=== PATIENT | male | born 1935 | race Caucasian/White ===

== ENCOUNTER → 2018-03-22 | Outpatient (CLI) | payer MEDICARE, BC | END | disposition home or self-care (01) | LOC: LABWHC1 08:46 | PROVIDERS: ATTEND Internal Medicine Cardiovascular Disease | DX: I25.10 Atherosclerotic heart disease of native coronary artery without angina pectoris (principal) | CPT/HCPCS: 36415; 83704 ==

== ENCOUNTER → 2020-12-03 | Outpatient (CLI) | payer MEDICARE, OTHER | END | disposition home or self-care (01) | CPT/HCPCS: 36415; 80053; 80061; 83036; 84443 ==

== ENCOUNTER 2023-06-07 11:32 | Day surgery (SDC) | payer MEDICARE ==
[~2023-06-07 11:32] MED LIST: LIDOCAINE 1% (10MG/ML) FOR IV START INTRADERMA PRN; SODIUM CHLORIDE 0.9% 1,000 ML IV SCH; ceFAZolin 1 GM in SODIUM CHLORIDE 0.9% IRRIG BTL 250 ML IRRIGATION PRN
[2023-06-07] MEDS ORDERED: SODIUM CHLORIDE 0.9% 1,000 ML IV ONE (12:07)
[2023-06-07 12:29] LABS: Glucose,Whole Blood 151 mg/dL (70-110)
[2023-06-07] MEDS ORDERED: fentaNYL (PF) 50 MCG/ML 2 ML AMP ONE (14:35)
[2023-06-07] MEDS ORDERED: IOPAMIDOL-370 100ML BTL INJ ONE (14:56)
[2023-06-07] MEDS ORDERED: LIDOCAINE 1% INJ 10MG/ML (30 ML VIAL-PF) SQ ONE (15:30)
[2023-06-07] MEDS ORDERED: ACETAMINOPHEN TAB 325 MG TAB PO PRN (16:41)
[2023-06-07] MEDS ORDERED: ACETAMINOPHEN IV (For NPO) 1,000 MG in EMPTY BAG 1 BAG IVPB ONE (17:00)
[2023-06-07] MEDS: LACTATED RINGERS 1,000 ML IV SCH (17:36)
--- NOTE | 2023-06-07 17:37 | P.EPPROC ---
- EP Procedure Note Electrophysiology Procedure Note: Diagnosis Complete heart block, congestive heart failure, left radical ejection fraction mildly reduced 100% RV pacing Procedure Upgrade to a biventricular pacemaker with conduction system pacing (left bundle pacing) Left upper extremity venogram Details Patient was brought to the EP lab in a fasting state. Written informed consent was obtained prior to the procedure. Conscious sedation provided by TRANSMISSION SPECIALIST. IV antibiotics administered. Local anesthesia administered. A 4 cm incision ma de in the pectoral area. Subfascial pocket made. Venous accesses obtained Venous sheaths placed. Leads placed in the right heart. A deflected sheath was prepped. A coronary sinus decapolar catheter was placed within this sheath. The catheter along with the sheath was then passed into the right heart, the catheter was prolapsed across the tricuspid valve, into the right ventricle and then further into the right ventricular outflow tract across the pulmonic valve into the pulmonary artery. This sheath was slid over this decapolar catheter into the RVOT. Thereafter the catheter last sheath assembly was withdrawn from the RVOT along the septum to the mid septal area. The sheath was appropriately to to map the right ventricular aspect of the septum. The decapolar catheter was withdrawn, the sheath flushed again and the screw-in pacing lead placed within the sheath. Further detailed unipolar pace-mapping of the septum was performed and once the appropriate based morphology was obtained on lead V1, the lead was screwed into the septum. The lead was screwed in 4-5 returns at a time while monitoring the current of injury, the pacing impedance changes and the paced QRS morphology. The stimulus to peak of V6 QRS was measured at each step. Once a QR or rSR pattern of paced QRS in lead V1 was obtained, a left bundle signal was sought. Impedance was measured and thresholds were measured. An impedance drop of 100-200 ohms but above 550 ohms was targeted along with an unchanged vector of the current of injury signal. The final positioning was based on the QRS morphology in lead V1 and a short stimulus to peak of the V6 QRS of less than 90 ms. The sheath was withdrawn, stability of the pacing lead deep in the septum was confirmed on BECKHAM and SERENITY views and the sheath was slipped and an adequate heel was provided for the lead. Unipolar and bipolar electrogram morphology obtained Chronic atrial lead [employer] model #5076, 45 cm length implanted in 09/19/2013 Pacing impedance 418 ohms, P waves 4.9 mV and pacing threshold 0.5 V at 0.4 ms Chronic RV lead, [employer]onic model #5076, 52 cm length, also implanted originally for complete heart block on August Pacing impedance 532 ohms, no R waves Pacing threshold 0.75 V at 0.4 ms Left bundle lead parameters Medtronic model #3830, 69 cm length Pacing threshold 0.5 V at 0.4 ms unipolar Pacing impedance 779 ohms Stimulus to QRS peak on V6: 30 ms QRS width 144 ms Typical right bundle branch block pattern on bipolar and on unipolar pacing QR pattern QRS width and stimulus to V6 speak slightly greater in the bipolar configuration Oral device was a Metronic Adapta DR New device [employer] Medtronic RNO [id number] Biventricular pacemaker device connected to the leads and placed in the subfascial pocket Patient tolerated the procedure well without acute complications Pacemaker programming: DDDR 60-130 Paced AV delay 210 ms LV-RV offset 80 ms Left bundle pacing in the unipolar configuration Patient tolerated the procedure well without any acute complications. Antibiotic pouch placed in pocket Wound closed in 3 layers and dressed per protocol
[2023-06-07] MEDS: GLIMEPIRIDE 1 MG TAB PO SCH (20:36)
[2023-06-07] MEDS ORDERED: PRAVASTATIN SODIUM 80 MG TAB PO SCH (21:00)
[2023-06-07] MEDS ORDERED: METOPROLOL SUCCINATE (ER) 25 MG TAB.ER.24H PO SCH (21:00)
[2023-06-08 03:25] VITALS: RESP 15
[2023-06-08] MEDS: LACTATED RINGERS 1,000 ML IV SCH (03:49)
[2023-06-08] MEDS ORDERED: LEVOTHYROXINE 88 MCG TAB PO SCH (06:30)
[2023-06-08] MEDS ORDERED: LOSARTAN 25 MG TAB PO SCH (09:00)
[2023-06-08] MEDS ORDERED: ASPIRIN 81 MG PO SCH (09:00)
--- NOTE | 2023-06-08 09:17 | XR ---
EXAMINATION TYPE: XR chest 2V DATE OF EXAM: 06/08/2023 COMPARISON: 09/20/2013 HISTORY: 87-year-old male placement check TECHNIQUE: Frontal and lateral views FINDINGS: Left anterior chest wall generator with right atrial and 2 right ventricular leads not demonstrated. Median sternotomy wires post-CABG clips. No appreciable pneumothorax. New patchy left basilar opacity . No pleural effusion on the lateral view. Loss of the subacromial space on the right compatible with a chronic full-thickness rotator cuff tear. IMPRESSION: 1. Left anterior chest wall pacemaker generator now with a second lead placed to the right ventricle. 2. New patchy left basilar opacity, atelectasis versus early infiltrate.
[2023-06-08 09:23] VITALS: TEMP 97.6
[2023-06-08] MEDS: GLIMEPIRIDE 1 MG TAB PO SCH (09:37)
[2023-06-08 09:48] VITALS: BP 139/56; PULSE 73
--- NOTE | 2023-06-08 12:54 | P.EPCON ---
Electrophysiology Consult - EP Consult Electrophysiology Consult: Patient is doing well. He is resting comfortably in bed No chest discomfort dizziness or lightheadedness Pacemaker site is sore but minimal hematoma and soakage noted No dizziness lightheadedness Blood pressure 109/60 mmHg and 128/63 mmHg Pulse rate in the 60s and 70s Normal heart sounds no murmurs or gallops Breath sounds are clear Impression 100% RV paced with mild cardio myopathy Pacemaker generator at [facility] Status post upgrade to a biventricular pacemaker with left bundle pacing Excellent thresholds noted today in follow-up Chest x-ray is within normal limits Patient complains of lower extremity pain with exertion Plan Discharge home today Continue current medications Ankle-brachial index as an outpatient
--- NOTE | 2023-06-08 13:00 | P.DS ---
Providers Attending physician: Brandyn Adams Primary care physician: [facility] Course: Patient is doing well. He is resting comfortably in bed No chest discomfort dizziness or lightheadedness Pacemaker site is sore but minimal hematoma and soakage noted No dizziness lightheadedness Blood pressure 109/60 mmHg and 128/63 mmHg Pulse rate in the 60s and 70s Normal heart sounds no murmurs or gallops Breath sounds are clear Impression 100% RV paced with mild cardio myopathy Pacemaker generator at [facility] Status post upgrade to a biventricular pacemaker with left bundle pacing Excellent thresholds noted today in follow-up Chest x-ray is within normal limits Patient complains of lower extremity pain with exertion Plan Discharge home today Continue current medications Ankle-brachial index as an outpatient Patient Condition at Discharge: Good Plan - Discharge Summary Discharge Rx Participant: No New Discharge Prescriptions: Continue Pravastatin Sodium 80 mg PO HS Metoprolol Succinate [Metoprolol Succinate ER] 25 mg PO HS Aspirin [Adult Low Dose Aspirin EC] 81 mg PO QAM Levothyroxine Sodium [Synthroid] 88 mcg PO QAM Losartan [Cozaar] 25 mg PO QAM Glimepiride [Amaryl] 1 mg PO BID Discharge Medication List Aspirin [Adult Low Dose Aspirin EC] 81 mg PO QAM 06/02/23 [History] Glimepiride [Amaryl] 1 mg PO BID 06/02/23 [History] Levothyroxine Sodium [Synthroid] 88 mcg PO QAM 06/02/23 [History] Losartan [Cozaar] 25 mg PO QAM 06/02/23 [History] Metoprolol Succinate [Metoprolol Succinate ER] 25 mg PO HS 06/02/23 [History] Pravastatin Sodium 80 mg PO HS 06/02/23 [History] Follow up Appointment(s)/Referral(s): Brandyn Adams MD [STAFF PHYSICIAN] - 06/14/23 1:45 pm (DEVICE CLINIC APPOINTMENT IS ON May AT 1:45 PM August AT 9:00 AM FOR EN APPOINTMENT Discharge once device interrogation is complete and is within normal limits ) Activity/Diet/Wound Care/Special Instructions: PATIENT EDUCATION MATERIAL Instructions following a heart rhythm device implant. 1. Keep dressing DRY for 5 DAYS. You may cover the area with Saran or Cling Wrap, prior to a shower. 2. The dressing will be removed in the Device Clinic at [facility]. Absorbable sutures were used to close the wound. 3. Avoid raising the left arm above the shoulder level. 4 week restriction 4. Avoid arm movements, like backscratching, rubbing the head, or pulling on a cord. 4 weeks restriction 5. Gentle range of motion movements of the shoulder, closest to the incision should be performed to avoid a frozen shoulder. (Pendulum exercises of the shoulder) 6. The opposite arm may be used freely. 7. Avoid driving for 7 days. 8. Avoid activities such as golfing, swimming, weed whacking, lifting more than 10 pounds weight, bowling, gymnastics and weight training/lifting. (6 weeks restriction) 9. Activities such as wood chopping with an axe, pull-ups in the gymnasium, power lifting, arc-welding, being close to home induction cooktops will always be a problem. 10. Arm sling is only a reminder not to raise the arm above the head. You do not need to keep the arm completely immobilized. Your free to move the arm and use it and for normal activities. In case of any problems, please call [facility], [place], @ [phone], Attention: Device Clinic Device clinic follow-up in 5 days Follow-up with primary durability engineer in 2-3 months Discharge Disposition: HOME SELF-CARE
== END 2023-06-08 12:30 | disposition home or self-care (01) ==
LOC: CATHEP 11:32 → 6NMEDSUR 16:41 → CATHEP 06-08 12:30
PROVIDERS: ATTEND Internal Medicine Clinical Cardiac Electrophysiology
DX: I51.7 Cardiomegaly (principal); I44.2 Atrioventricular block, complete; I50.9 Heart failure, unspecified; I25.10 Atherosclerotic heart disease of native coronary artery without angina pectoris; E11.9 Type 2 diabetes mellitus without complications; E07.9 Disorder of thyroid, unspecified; I10 Essential (primary) hypertension; Z79.84 Long term (current) use of oral hypoglycemic drugs; Z79.82 Long term (current) use of aspirin; Z45.010 Encounter for checking and testing of cardiac pacemaker pulse generator [battery]; Z79.890 Hormone replacement therapy; Z79.899 Other long term (current) drug therapy
CPT/HCPCS: 33225; 33229; 71046; C1769 ×2; C2621; C1730; C1887; C1892; C1898; J0690 ×2; J2001; J3010; Q9967

== ENCOUNTER → 2024-03-20 | Outpatient (CLI) | payer MEDICARE ==
[2024-03-20 19:30] LABS: Basophils # (A) 0.11 X 10*3/uL (0.00-0.10); Eosinophils # (A) 0.33 X 10*3/uL (0.04-0.35); HGB 14.9 g/dL (13.0-17.0); Lymphocytes # (A) 3.46 X 10*3/uL (0.90-5.00); Lymphocytes % (A) 31.8 %; MCH 31.6 pg (27.0-32.0); MCHC 33.9 g/dL (32.0-37.0); MCV 93.2 FL (80.0-97.0); Mean Platelet Volume 10.8 FL (9.5-12.2); Monocytes # (A) 0.75 X 10*3/uL (0.20-1.00); Monocytes % (A) 6.9 %; NRBC Per 100 WBC 0 X 10*3/uL (0.00-0.01); Neutrophils # (A) 6.21 X 10*3/uL (1.80-7.70); Neutrophils % (A) 57.1 %; Platelet Count 246 X 10*3/uL (140-440); RBC 4.72 X 10*6/uL (4.40-5.60); RDW 12.7 % (11.5-14.5); WBC 10.88 X 10*3/uL (4.50-10.00)
[2024-03-20 19:45] LABS: ALT 21 U/L (10-49); AST 28 U/L (14-35); Albumin 4.2 g/dL (3.8-4.9); Albumin/Globulin Ratio 1.56 Ratio (1.60-3.17); Alkaline Phosphatase 76 U/L (41-126); BUN/Creat Ratio 16.85 Ratio (12.00-20.00); Blood Urea Nitrogen 21.9 mg/dL (9.0-27.0); Calcium 9.5 mg/dL (8.7-10.3); Carbon Dioxide 15.3 mmol/L (21.6-31.8); Chloride 101 mmol/L (96-109); Chol/HDL Ratio 2.41 Ratio; Globulin 2.7 g/dL (1.6-3.3); Glucose 155 mg/dL (70-110); LDL Cholesterol,Calculated 42.5 mg/dL (0.0-131.0); Sodium 134 mmol/L (135-145); Total Bilirubin 0.6 mg/dL (0.3-1.2); Total Protein 6.9 g/dL (6.2-8.2)
== END | disposition home or self-care (01) ==
LOC: LABWHC1 13:28
PROVIDERS: ATTEND Internal Medicine Clinical Cardiac Electrophysiology
CPT/HCPCS: 36415; 80053; 80061; 83036; 83735; 84443; 85025